=== PATIENT | female | born 1955 ===

== ENCOUNTER 2022-04-13 09:48 | Inpatient (IN) | payer OTHER ==
[~2022-04-13] VITALS: Ht 157.5 cm; Wt 79.4 kg
[2022-04-18] MEDS ORDERED: ANTI-ITCH 2%-0.35 GM (07:53)
[2022-04-18] MEDS ORDERED: ZOLPIDEM TARTRA10 MG (07:54)
[2022-04-18] MEDS ORDERED: MODAFINIL100 MG (07:54)
[2022-04-18] MEDS ORDERED: VOLTAREN ARTHRI20 GM (07:54)
[2022-04-18] MEDS ORDERED: ESOMEPRAZOLE MA20 MG (07:54)
[2022-04-18] MEDS ORDERED: REFRESH TEARS15 ML (07:54)
[2022-04-18] MEDS ORDERED: CELECOXIB200 MG (07:54)
[2022-04-18] MEDS ORDERED: GABAPENTIN800 M1 (07:54)
[2022-04-18] MEDS ORDERED: DOXAZOSIN MESYLA1 MG (07:54)
[2022-04-18] MEDS ORDERED: KETOTIFEN FUMARA5 ML (07:54)
[2022-04-18] MEDS ORDERED: TOPIRAMATE100 MG (07:55)
[2022-04-18] MEDS ORDERED: TRAMADOL HCL50 MG (07:55)
[2022-04-18] MEDS ORDERED: DONEPEZIL HCL10 MG (07:55)
[2022-04-18] MEDS ORDERED: LOSARTAN POTASS25 MG (07:55)
== END 2022-04-20 13:12 | disposition home or self-care (01) | DRG 330 ==
LOC: SURG 04-18 06:15 → SURH 04-18 07:45 → O/R 04-18 07:45 → SURH 04-18 10:54 → SURG 04-18 11:45 → SURH 04-20 13:12
PROVIDERS: ADMIT Colon & Rectal Surgery; ATTEND Colon & Rectal Surgery
PROC: 0DBP4ZZ Excision of Rectum, Percutaneous Endoscopic Approach (ICD-10-PCS; 2022-04-18)
PROC: 0DJD8ZZ Inspection of Lower Intestinal Tract, Via Natural or Artificial Opening Endoscopic (ICD-10-PCS; 2022-04-18)
PROC: 0DTN4ZZ Resection of Sigmoid Colon, Percutaneous Endoscopic Approach (ICD-10-PCS; principal; 2022-04-18 06:15)
DX: K57.32 Diverticulitis of large intestine without perforation or abscess without bleeding (principal); K92.1 Melena

== ENCOUNTER 2024-07-23 07:00 | Inpatient (IN) | payer OTHER ==
[~2024-07-23] VITALS: Ht 157.5 cm; Wt 74.8 kg
[~2024-07-23 07:00] MED LIST: ANTI-ITCH 2%-0.35 GM; CELECOXIB200 MG; DONEPEZIL HCL10 MG; DOXAZOSIN MESYLA1 MG; ESOMEPRAZOLE MA20 MG; GABAPENTIN800 M1; KETOTIFEN FUMARA5 ML; LOSARTAN POTASS25 MG; MODAFINIL100 MG; REFRESH TEARS15 ML; TOPIRAMATE100 MG; TRAMADOL HCL50 MG; VOLTAREN ARTHRI20 GM; ZOLPIDEM TARTRA10 MG
[2024-07-23] MEDS ORDERED: FLEXERIL (07:41)
[2024-07-23 07:45] VITALS: BP 121/84
[2024-07-23 07:49] LABS: PH,URINE 5.5 (5.0-8.0); URINE APPEARANCE Clear; URINE BILIRRUBIN Negative (NEGATIVE); URINE BLOOD Negative; URINE COLOR Dark Yellow; URINE GLUCOSE Negative (NEGATIVE); URINE KETONE Trace (NEGATIVE); URINE LEUKOCYTE Negative; URINE NITRATE Negative; URINE PROTEIN Negative (NEGATIVE); URINE UROBILINOGEN 0.2 E.U./dl
[2024-07-23 07:52] LABS: BASO % 0.6 % (0.1-1.2); EOS % 2.5 % (0.7-7.0); HEMOGLOBIN 13.2 g/dL (11.2-15.7); LYMPH # 2.55 (1.18-3.74); MEAN CORPUSCULAR HEMOGLOBIN 25.6 pg (25.6-32.2); MONO # 0.73 (0.24-0.82); MONO % 9.1 % (4.7-12.5); NEUT # 4.42 (1.56-6.13); NEUT % 55.4 % (34.0-71.1); PLATELET COUNT 309 K/uL (163-369); RED BLOOD COUNT 5.16 M/uL (3.93-5.22); RED CELL DISTRIBUTION WIDTH 15.7 % (11.6-14.4)
[2024-07-23 07:53] LABS: URINE BACTERIA 2194.6 uL (0.0-1933); URINE EPITHELIAL CELLS 34.4 uL (0.0-38.8); URINE RBC 4.7 uL (0.0-20.8); URINE WBC 15.1 uL (0.0-23.2)
[2024-07-23 08:05] LABS: INR 0.98; PARTIAL THROMBOPLASTIN TIME 26.5 SECONDS (22.0-34.0); PROTHROMBIN TIME 10.7 SECONDS (9.0-11.5)
[2024-07-23 08:11] LABS: URINE CAST 0.14 uL (0.0-1.40)
[2024-07-23 08:26] LABS: COVID-19 AG NEGATIVE (NEGATIVE)
[2024-07-23 08:50] LABS: RH POSITIVE
[2024-07-23 12:32] LABS: ALBUMIN 3.5 gm/dL (3.4-5.0); BILIRUBIN TOTAL 0.28 mg/dL (0.3-1.2); CALCIUM 9.4 mg/dL (8.5-10.1); CHOL HDL RATIO 2.6 (0-5.0); CREATININE SERUM 0.77 mg/dL (0.55-1.02); GFR 74.55; GLOBULINA 3.4 G/DL (2.4-3.5); POTASSIUM 4.88 mEq/L (3.5-5.1); TOTAL PROTEIN 6.9 gm/dL (6.4-8.2)
[2024-07-29] MEDS ORDERED: CEFAZOLIN SODIUM 1,000 MG VIAL ONE (07:29)
[2024-07-29] MEDS ORDERED: TRANEXAMIC ACID 100MG/1ML (1000MG) AMPUL IV ONE ×3 (07:29→08:45)
[2024-07-29] MEDS ORDERED: KETOROLAC TROMETHAMINE 60 MG VIAL IM ONE ×2 (07:52→08:45)
[2024-07-29] MEDS ORDERED: POVIDONE-IODINE 118 ML BOTT TOP ONE ×2 (07:52→08:45)
[2024-07-29] MEDS ORDERED: VANCOMYCIN HCL 1,000 MG VIAL ONE (07:52)
[2024-07-29] MEDS ORDERED: ISOPROPYL ALCOHOL 30 ML OUNCE TOP ONE (08:45)
[2024-07-29] MEDS ORDERED: VANCOMYCIN HCL 1,000 MG VIAL IR ONE (08:45)
[2024-07-29] MEDS ORDERED: MORPHINE SULFATE 4 MG/ML VIAL IV ONE ×2 (08:45→12:45)
[2024-07-29] MEDS ORDERED: CEFAZOLIN SODIUM 1,000 MG VIAL IV ONE (08:45)
[2024-07-29] MEDS ORDERED: LIDOCAINE HCL 1%/EPINEPHRINE 20ML VIAL IJ ONE (08:53)
[2024-07-29] MEDS ORDERED: BUPIVACAINE HCL/MPF 0.5% 30ML VIAL ONE (08:53)
[2024-07-29] MEDS ORDERED: MORPHINE SULFATE 4 MG/ML CARTRIDGE IV PRN (13:45)
[2024-07-29] MEDS ORDERED: SODIUM CHLORIDE 0.45 % 1,000 ML IV SCH (13:45)
[2024-07-29] MEDS ORDERED: OxyCODONE HCL 5 MG TABLET (ROXICODONE) PO PRN (13:45)
[2024-07-29] MEDS ORDERED: ONDANSETRON HCL 2 MG/ML VIAL IV PRN (13:45)
[2024-07-29 16:24] VITALS: BP 102/66
[2024-07-29] MEDS ORDERED: CEFAZOLIN SODIUM 1,000 MG VIAL IV SCH (17:00)
[2024-07-29] MEDS ORDERED: APIXABAN 2.5 MG TABLET PO SCH (17:00)
[2024-07-29] MEDS ORDERED: GABAPENTIN 300 MG CAPSULE PO SCH (17:00)
[2024-07-29] MEDS ORDERED: ACETAMINOPHEN 500 MG GEL..CAP PO SCH (18:00)
[2024-07-30] VITALS: BP 121/78
[2024-07-30 05:00] VITALS: BP 122/79
[2024-07-30 06:48] LABS: BASO % 0.3 % (0.1-1.2); EOS # 0.21 (0.04-0.54); EOS % 2.2 % (0.7-7.0); HEMATOCRIT 35.7 % (34.1-44.9); HEMOGLOBIN 11.2 g/dL (11.2-15.7); LYMPH # 1.41 (1.18-3.74); LYMPH % 14.9 % (19.3-53.1); MEAN CORPUSCULAR HEMOGLOBIN 25.8 pg (25.6-32.2); MONO # 0.84 (0.24-0.82); MONO % 8.9 % (4.7-12.5); NEUT # 6.92 (1.56-6.13); NEUT % 73.2 % (34.0-71.1); PLATELET COUNT 230 K/uL (163-369); RED BLOOD COUNT 4.34 M/uL (3.93-5.22); RED CELL DISTRIBUTION WIDTH 15.1 % (11.6-14.4)
[2024-07-30] MEDS ORDERED: CEFADROXIL500 MG PO (08:21)
[2024-07-30] MEDS ORDERED: PERCOCET 5-3251 EACH PO (08:21)
[2024-07-30] MEDS ORDERED: ELIQUIS2.5 MG PO (08:21)
[2024-07-30 08:44] VITALS: BP 133/77
[2024-07-30] MEDS ORDERED: SENNOSIDES 1 TAB TABLET PO SCH (09:00)
[2024-07-30] MEDS ORDERED: Cyanocobalamin/Mecobalamin 1 TAB.SL SL NR (13:15)
[2024-07-30 16:36] VITALS: BP 125/82
[2024-07-30] MEDS ORDERED: SOD FERRIC GLUC COMPLX/SUCROSE 62.5 MG/5 ML AMPUL IV SCH (17:00)
[2024-07-30] MEDS ORDERED: VITAMIN B COMPLEX 1 EACH PO SCH (17:00)
[2024-07-31] VITALS: BP 119/74
[2024-07-31 07:10] LABS: BASO % 0.3 % (0.1-1.2); EOS # 0.34 (0.04-0.54); EOS % 3.6 % (0.7-7.0); HEMOGLOBIN 9.9 g/dL (11.2-15.7); LYMPH % 18.1 % (19.3-53.1); MEAN CORPUSCULAR HEMOGLOBIN 25.6 pg (25.6-32.2); MONO % 9.6 % (4.7-12.5); PLATELET COUNT 215 K/uL (163-369); RED BLOOD COUNT 3.86 M/uL (3.93-5.22); RED CELL DISTRIBUTION WIDTH 15.3 % (11.6-14.4)
[2024-07-31 08:29] VITALS: BP 133/62
[2024-07-31] MEDS ORDERED: IRON FUM,PS/FOLIC ACID/VITC/B3 1 CAP CAPSULE PO SCH (09:00)
[2024-07-31] MEDS ORDERED: Cyanocobalamin/Mecobalamin 1 TAB.SL SL SCH (09:00)
== END 2024-07-31 13:36 | DRG 470 ==
LOC: SURH 07-29 07:00 → OB/GYN 07-29 07:37 → O/R 07-29 07:37 → SURH 07-29 10:15 → OB/GYN 07-29 13:20
PROVIDERS: ADMIT Orthopaedic Surgery; ATTEND Orthopaedic Surgery
PROC: 0SUD07Z Supplement Left Knee Joint with Autologous Tissue Substitute, Open Approach (ICD-10-PCS; 2024-07-29)
PROC: 0SRD0J9 Replacement of Left Knee Joint with Synthetic Substitute, Cemented, Open Approach (ICD-10-PCS; principal; 2024-07-29 10:15)
DX: M17.12 Unilateral primary osteoarthritis, left knee (principal); D62 Acute posthemorrhagic anemia; M22.12 Recurrent subluxation of patella, left knee; I10 Essential (primary) hypertension